=== PATIENT | male | born 1955 | race Asian ===

== ENCOUNTER 2020-02-26 22:48 | Emergency (ER) | payer MEDICAID ==
[~2020-02-26] VITALS: Ht 172.7 cm; Wt 72.6 kg
--- NOTE | 2020-02-26 22:51 | Emergency Room Report ---
History of Present Illness General Chief Complaint: Substance Abuse Source: Patient, EMS Present Illness HPI Disclaimer: Please note that this report is being documented using [employer] technology. This can lead to erroneous entry secondary to incorrect interpretation by the dictating instrument. HPI: 64-year-old male brought in for evaluation of altered mental status. [place] [employer] unable to ambulate and unsteady on his feet. Crystal meth was found on his person the patient admits to using crystal meth several hours ago. Denies alcohol or other coingestants. This is recreational he denies SI/HI. No head injury reported. He has no complaints at this time aside from feeling sleepy. Denies history of seizures. States he does not take any other medications. PMH: Substance abuse PSH: Reviewed Allergies: Denied Social Hx: Substance abuse Allergies: Coded Allergies: NO KNOWN ALLERGIES (Verified Allergy, Unknown, 02/26/20) Review of Systems All Other Systems: negative except mentioned in HPI Physical Exam Vital Signs Date Time Temp Pulse Resp B/P (MAP) Pulse Ox O2 Delivery O2 Flow Rate FiO2 02/26/20 22:44 97.7 82 18 178/114 (135) 98 Room Air General: Unkempt male. Sleeping comfortably awakens to voice. HEENT: NC/AT. EOMI. pupils 4 mm reactive bilaterally. No midface instability. No facial abrasions or lacerations. No scalp abrasions or lacerations. Possible recent suture repair of the left scalp the wounds are clean dry and intact. No retained sutures. Cardiovascular: RRR. S1 and S2 normal. No murmur appreciated Resp: Normal work of breathing. No cough, wheezing or crackles appreciated Abdomen: Abdomen is soft, nondistended. Nontender Skin: Intact. There are 3 linear what appear to be healed laceration sites over the left scalp possibly from recent sutures MSK: Normal tone and bulk. Moving all extremities. No obvious deformity. Neuro: Sleeping comfortably. Awakens to voice. GCS 14. Moving all ext remities. Mentating appropriately and answering questions. Denies SI/HI Procedures Critical Care Time Critical Care Time Total critical care time: Approximately 45 minutes Due to a high probability of clinically significant, life threatening deterioration, the patient required the highest level of preparedness to intervene emergently and I personally spent this critical care time directly and personally managing the patient. This critical care time included obtaining a history, examining the patient, pulse oximetry, ordering and reviewing studies, ordering treatments, evaluating response to treatment and updating management plan as needed, frequent reassessment and discussion with other providers as well as arranging for ultimate disposition. This critical to care time was performed to assess and manage the high probability of life-threatening deterioration that could result in multiorgan failure. This critical care time is separate from the separately billable procedures and treating other patients. Medical Decision Making Diagnostic Impression: Primary Impression: Substance abuse Additional Impression: Intracranial hemorrhage ER Course 64-year-old male brought in by EMS for evaluation of altered mental status. Differential includes was not limited to intoxication, substance abuse, electrolyte abnormality, psychiatric disorder among others. GCS 14 on arrival and the patient is responsive. He admits to using methamphetamines earlier today. Labs were obtained and returned largely within normal limits. Patient is declining to give urine at this time. Attempted to place Bartlett catheter however met resistance. Will wait for the patient to urinate. Alcohol and coingestants otherwise negative. He was allowed to metabolize in the emergency department for nearly 7 hours now awake and responding. He is asking for something to eat and drink. Will provide him with food and reevaluate 0630: Patient was unable to ambulate to the bathroom and a head CT was ordered. Intracranial hemorrhage identified in the right frontal lobe without mass- effect. Radiology notes mild vasogenic edema. Radiology also find suspicious foci of subarachnoid hemorrhage within the right sylvian fissure and quadrigeminal plate cistern. Keppra given. Discussed with [facility], Dr. Starks, who has accepted the patient. We will give labetalol for elevated blood pressure as systolic pressures are in the 150s. Patient agrees to transfer. Laboratory Tests Test 02/26/20 23:00 White Blood Count 12.2 K/UL (4.8-10.8) H Red Blood Count 4.69 M/UL (4.70-6.10) L Hemoglobin 11.1 G/DL (14.2-18.0) L Hematocrit 35.8 % (42.0-52.0) L Mean Corpuscular Volume 76 FL (80-99) L Mean Corpuscular Hemoglobin 23.8 PG (27.0-31.0) L Mean Corpuscular Hemoglobin Concent 31.2 G/DL (32.0-36.0) L Red Cell Distribution Width 17.1 % (11.6-14.8) H Platelet Count 328 K/UL (150-450) Mean Platelet Volume 5.5 FL (6.5-10.1) L Neutrophils (%) (Auto) 84.4 % (45.0-75.0) H Lymphocytes (%) (Auto) 7.4 % (20.0-45.0) L Monocytes (%) (Auto) 6.4 % (1.0-10.0) Eosinophils (%) (Auto) 1.0 % (0.0-3.0) Basophils (%) (Auto) 0.9 % (0.0-2.0) Sodium Level 135 MMOL/L (136-145) L Potassium Level 3.7 MMOL/L (3.5-5.1) Chloride Level 101 MMOL/L (98-107) Carbon Dioxide Level 26 MMOL/L (21-32) Anion Gap 8 mmol/L (5-15) Blood Urea Nitrogen 24 mg/dL (7-18) H Creatinine 1.2 MG/DL (0.55-1.30) Estimated Glomerular Filtration Rate > 60 mL/min (>60) Glucose Level 137 MG/DL (74-106) H Calcium Level 8.5 MG/DL (8.5-10.1) Total Bilirubin 0.3 MG/DL (0.2-1.0) Aspartate Amino Transferase (AST) 26 U/L (15-37) Alanine Aminotransferase (ALT) 21 U/L (12-78) Alkaline Phosphatase 93 U/L (46-116) Total Protein 6.3 G/DL (6.4-8.2) L Albumin 3.2 G/DL (3.4-5.0) L Globulin 3.1 g/dL Albumin/Globulin Ratio 1.0 (1.0-2.7) Salicylates Level 1.4 ug/mL (2.8-20) L Acetaminophen Level < 2 MCG/ML (10-30) L Serum Alcohol < 3 mg/dL CT/MRI/US Diagnostic Results CT/MRI/US Diagnostic Results : Impression Final Report EXAM: CT Head Without Intravenous Contrast CLINICAL HISTORY: AMS TECHNIQUE: Axial computed tomography images of the head/brain without intravenous contrast. CTDI is 53.40 mGy and DLP is 1152.40 mGy-cm. One or more of the following dose reduction techniques were used: automated exposure control, adjustment of the mA and/or kV according to patient size, use of iterative reconstruction technique. COMPARISON: No relevant prior studies available. FINDINGS: Focal intraparenchymal hemorrhage within the high right frontal lobe, measuring 1.4 x 1.1 cm. Mild surrounding vasogenic edema. Suspected, foci of subarachnoid hemorrhage within the right sylvian fissure and quadrigeminal plate cistern. No midline shift or mass-effect. Mild age-related cerebral volume loss. Subcortical white matter and periventric ular white matter changes, consistent with microangiopathy. IMPRESSION: Focal intraparenchymal hemorrhage within the high right frontal lobe, measuring 1.4 x 1.1 cm. Mild surrounding vasogenic edema. Suspected, foci of subarachnoid hemorrhage within the right sylvian fissure and quadrigeminal plate cistern. Continued head CT follow-up recommended. Radiologist: Izaiah Aranda MD Electronically Signed: 02/27/20 06:28 Study ready at 05:56 and initial results transmitted at 06:28 Communications: Clear Time Type Notes 02/27/20 06:34 Call Doctor Regarding Other, called Quentin DAVIDSON on 02/26 06:37 (-07:00) Disposition: SHORT-TERM HOSP Condition: Serious Trevor Ji MD Feb 26, 2020 22:51
[2020-02-26 23:00] VITALS: BP 160/90
[2020-02-26 23:31] LABS: BASOPHILS % (AUTO) 0.9 % (0.0-2.0); HEMATOCRIT 35.8 % (42.0-52.0); HEMOGLOBIN 11.1 G/DL (14.2-18.0); LYMPHOCYTES % (AUTO) 7.4 % (20.0-45.0); MEAN CORPUSCULAR VOLUME 76 FL (80-99); MONOCYTES % (AUTO) 6.4 % (1.0-10.0); NEUTROPHILS % (AUTO) 84.4 % (45.0-75.0); PLATELET COUNT 328 K/UL (150-450); RED BLOOD COUNT 4.69 M/UL (4.70-6.10); RED CELL DISTRIBUTION WIDTH 17.1 % (11.6-14.8); WHITE BLOOD COUNT 12.2 K/UL (4.8-10.8)
[2020-02-26 23:48] LABS: ANION GAP 8 mmol/L (5-15); BLOOD UREA NITROGEN 24 mg/dL (7-18); CALCIUM 8.5 MG/DL (8.5-10.1); CARBON DIOXIDE 26 MMOL/L (21-32); CHLORIDE 101 MMOL/L (98-107); CREATININE 1.2 MG/DL (0.55-1.30); POTASSIUM 3.7 MMOL/L (3.5-5.1); SODIUM 135 MMOL/L (136-145)
[2020-02-26 23:51] LABS: ALANINE AMINOTRANSFERASE 21 U/L (12-78); ALBUMIN 3.2 G/DL (3.4-5.0); ALKALINE PHOSPHATASE 93 U/L (46-116); ASPARTATE AMINO TRANSFERASE 26 U/L (15-37); BILIRUBIN,TOTAL 0.3 MG/DL (0.2-1.0)
[2020-02-27 01:00] VITALS: BP 123/76
[2020-02-27 03:00] VITALS: BP 144/86
[2020-02-27 05:00] VITALS: BP 145/76
[2020-02-27 06:03] VITALS: BP 154/100
--- NOTE | 2020-02-27 06:29 | Diagnostic Imaging Report ---
EXAM: CT Head Without Intravenous Contrast CLINICAL HISTORY: AMS TECHNIQUE: Axial computed tomography images of the head/brain without intravenous contrast. CTDI is 53.40 mGy and DLP is 1152.40 mGy-cm. One or more of the following dose reduction techniques were used: automated exposure control, adjustment of the mA and/or kV according to patient size, use of iterative reconstruction technique. COMPARISON: No relevant prior studies available. FINDINGS: Focal intraparenchymal hemorrhage within the high right frontal lobe, measuring 1.4 x 1.1 cm. Mild surrounding vasogenic edema. Suspected, foci of subarachnoid hemorrhage within the right sylvian fissure and quadrigeminal plate cistern. No midline shift or mass-effect. Mild age-related cerebral volume loss. Subcortical white matter and periventricular white matter changes, consistent with microangiopathy. IMPRESSION: Focal intraparenchymal hemorrhage within the high right frontal lobe, measuring 1.4 x 1.1 cm. Mild surrounding vasogenic edema. Suspected, foci of subarachnoid hemorrhage within the right sylvian fissure and quadrigeminal plate cistern. Continued head CT follow-up recommended. <MYCVCSECTION> Communications: 02/27/20 06:34 Call Doctor Regarding Other, called Quentin DAVIDSON on 02/26 06:37 (-07:00)
[2020-02-27] MEDS ORDERED: Labetalol 5mg/ml 20ml vial IV ONE ×2 (06:45→07:15)
[2020-02-27 06:49] VITALS: BP 162/98
[2020-02-27] MEDS ORDERED: levETIRAcetam 1,000mg/NS100ml 100 ML IVPB ONE ×2 (06:52→07:00)
[2020-02-27 07:02] LABS: INR 1.1 (0.9-1.1)
[2020-02-27 07:14] VITALS: BP 148/82
== END 2020-02-27 07:16 | disposition short-term general hospital (02) ==
LOC: EDBD 22:48 → EMR 23:05
DX: F15.10 Other stimulant abuse, uncomplicated (principal); I62.9 Nontraumatic intracranial hemorrhage, unspecified
CPT/HCPCS: 36415; 70450; 80053; 80307; 85025; 85610; 85730; 96374; 96375; G0480; G0481; J1953; U0002; Z7502; 99291